=== PATIENT | male | born 1995 ===

== ENCOUNTER 2021-06-26 13:10 | Outpatient (CLI) | payer OTHER | END 2021-06-26 13:11 | disposition home or self-care (01) | LOC: SONOGRAMA 13:10 | PROVIDERS: ATTEND Internal Medicine Gastroenterology | DX: R10.84 Generalized abdominal pain (principal) ==

== ENCOUNTER 2021-06-26 14:48 | Outpatient (CLI) | payer OTHER | END 2021-06-26 14:49 | disposition home or self-care (01) | LOC: LAB 14:48 | PROVIDERS: ATTEND Internal Medicine Gastroenterology | DX: R10.9 Unspecified abdominal pain (principal); E03.9 Hypothyroidism, unspecified; E78.5 Hyperlipidemia, unspecified; K52.9 Noninfective gastroenteritis and colitis, unspecified ==